=== PATIENT | male | born 1975 | race Caucasian/White ===

== ENCOUNTER 2018-08-31 10:36 | Emergency (ER) | payer BC ==
[2018-08-31 11:12] VITALS: BP 137/69
--- NOTE | 2018-08-31 12:01 | UC ---
Complaint Male HPI - HPI Summary HPI Summary: Pt presents with c/o BRBPR that began this morning with BM. Pt denies constipation but thought he had a hemorrhoid that has ruptured this morning with BM. Denies fever, chills, or black tarry stools. - History of Current Complaint Chief Complaint: UCGI Stated Complaint: PERSONAL Time Seen by Provider: 08/31/18 11:01 Hx Obtained From: Patient Onset/Duration: Sudden Onset - this morning. Timing: Constant, Lasting Minutes Severity Initially: Mild Severity Currently: None Pain Intensity: 3 Location: Other - rectum/anus Character: Sharp, Burning Aggravating Factor(s): Other - Bowel movement Associated Signs And Symptoms: Positive: Blood in Stool - Risk Factors Testicular Torsion: Negative - Allergies/Home Medications Allergies/Adverse Reactions: Allergies Allergy/AdvReac Type Severity Reaction Status Date / Time grass Allergy Eyes Uncoded 08/31/18 11:12 Itchy/Swollen/Red/Watery Home Medications: Home Medications Acetaminophen/Diphenhydramine [Tylenol Pm Ex-Strength Caplet] 1 each PO QPM PRN 08/31/18 [History Confirmed 08/31/18] NK [No Home Medications Reported] 08/31/18 [History Confirmed 08/31/18] PMH/Surg Hx/FS Hx/Imm Hx Previously Healthy: Yes GI/ History: Other - hemorrhoid - Surgical History Surgical History: Yes Surgery Procedure, Year, and Place: left finger fx - Family History Known Family History: Positive: Cardiac Disease - Social History Occupation: Employed Full-time Lives: With Family Alcohol Use: Rare Substance Use Type: None Smoking Status (MU): Never Smoked Tobacco Have You Smoked in the Last Year: No Review of Systems All Other Systems Reviewed And Are Negative: Yes Constitutional: Positive: Negative Skin: Positive: Negative Eyes: Positive: Negative ENT: Positive: Negative Respiratory: Positive: Negative Gastrointestinal: Positive: Other - BRBPR Genitourinary: Positive: Negative Motor: Positive: Negative Neurovascular: Positive: Negative Musculoskeletal: Positive: Negative Neurological: Positive: Negative Psychological: Positive: Negative Is Patient Immunocompromised?: No Physical Exam Triage Information Reviewed: Yes Appearance: Well-Appearing Vital Signs: Initial Vital Signs Temp 97.9 F 08/31/18 11:01 Pulse 79 08/31/18 11:01 Resp 16 08/31/18 11:01 BP 137/69 08/31/18 11:01 Pulse Ox 99 08/31/18 11:01 Vital Signs Reviewed: Yes Eye Exam: Normal ENT Exam: Normal ENT: Positive: Hearing grossly normal Dental Exam: Normal Neck exam: Normal Respiratory: Positive: No respiratory distress Abdominal Exam: Normal Abdomen Description: Positive: Nontender Male Genital Exam: Positive: Other - external hemorrhoid soft, with blood clot intact no active bleeding Musculoskeletal Exam: Normal Neurological Exam: Normal Psychological Exam: Normal Skin Exam: Normal Complaint Male Course/Dx - Differential Dx/Diagnosis Differential Diagnosis/HQI/PQRI: Other - hemorrhoid Provider Diagnosis: External hemorrhoid, bleeding Discharge - Sign-Out/Discharge Documenting (check all that apply): Patient Departure All imaging exams completed and their final reports reviewed: No Studies - Discharge Plan Condition: Stable Disposition: HOME Patient Education Materials: Astringent (On the skin), Hemorrhoids (DC) Referrals: Tara Savage MD [Primary Care Provider] - 4 Days - Billing Disposition and Condition Condition: STABLE Disposition: Home
== END 2018-08-31 11:54 | disposition home or self-care (01) ==
LOC: UCCORT 10:36
DX: K64.4 Residual hemorrhoidal skin tags (principal); K62.5 Hemorrhage of anus and rectum; Z91.09 Other allergy status, other than to drugs and biological substances
CPT/HCPCS: 82270; 99201; G0463